=== PATIENT | male | born 1990 | race Caucasian/White ===

== ENCOUNTER → 2023-12-01 08:40 | Outpatient (REF) | payer BC, SELFPAY | LOC: PAVMRI 08:40 | PROVIDERS: ATTENDING PHYSICIAN Family Medicine | DX: G43.111 Migraine with aura, intractable, with status migrainosus (principal); H53.9 Unspecified visual disturbance; R42 Dizziness and giddiness | CPT/HCPCS: 70553; A9575 ==

== ENCOUNTER → 2024-07-04 08:13 | Outpatient (REF) | payer BC, SELFPAY | LOC: RCS 08:13 | PROVIDERS: ATTENDING PHYSICIAN Nurse Practitioner Family | DX: R00.2 Palpitations (principal); R03.0 Elevated blood-pressure reading, without diagnosis of hypertension | CPT/HCPCS: 93225; 93226 ==

== ENCOUNTER → 2024-07-16 16:48 | Outpatient (REF) | payer BC, SELFPAY | LOC: RCS 16:48 | PROVIDERS: ATTENDING PHYSICIAN Nurse Practitioner Family | DX: E00.2 Congenital iodine-deficiency syndrome, mixed type (principal); R03.0 Elevated blood-pressure reading, without diagnosis of hypertension | CPT/HCPCS: 93306 ==

== ENCOUNTER 2024-12-07 17:56 | Emergency (ER) | payer BC, SELFPAY ==
[2024-12-07 17:57] VITALS: BP 144/103
[2024-12-07 18:15] VITALS: BMI 25.9
--- NOTE | 2024-12-07 18:40 | ED.GENMED ---
History of Present Illness
General
Chief Complaint: Skin Surface Trauma
Source: patient and spouse
Exam Limitations: none
Time Seen by Provider: 12/07/24 18:10
Nursing documentation reviewed up to this point in time: agreed with
History of Present Illness
History of Present Illness:
34-year-old male presenting to the emergency department today with concerns of a laceration of his right sided chin that occurred from a small metal piece of kitchen where that bounced off the table hitting him in the chin causing his skin split
open. Also to his tooth but denies any movement of the tooth. Denies any trouble swallowing or breathing denies any additional injuries otherwise. No loss of consciousness. Not on thinners. He claims that the material was somewhat dirty.
Review of Systems
Review of Systems
Allergies reviewed?: Yes
All Other Systems: ROS reviewed and negative except as documented in HPI and ROS
Phy Exam
Physical Exam
Physical Exam:
GENERAL: Alert , in no apparent distress
EYE: pupils equal and reactive
NECK: Supple, no significant adenopathy.
ENT: o/p clr, mmm.
CARDIAC: Regular rate and rhythm .
LUNGS: Clear breath sounds bilaterally, no acute respiratory distress, no wheezes/rales/rhonchi
ABDOMEN: Soft, without focal tenderness, no r/g, no cvat
NEUROLOGICAL: Alert and oriented, no focal neuro deficits
SKIN: 1.5 cm laceration to the right sided anterior chin. Subcutaneous in depth no foreign body seen explored to its base. Warm and dry, skin intact.
MUSCULOSKELETAL: No edema, well perfused.
PSYCH: Normal and appropriate interaction.
Course
Orders/Labs/Results
Orders:
Orders
12/07/24 18:41
Cephalexin Monohydrate [Keflex] 500 mg PO NOW STA
Vital Signs
Initial and Last Documented VS:
Initial Vital Signs
Temp Pulse Resp BP Pulse Ox
97.9 F 110 16 144/103 99
12/07/24 17:57 12/07/24 17:57 12/07/24 17:57 12/07/24 17:57 12/07/24 17:57
Last Documented Vital Signs
Temp Pulse Resp BP Pulse Ox
97.9 F 110 16 144/103 99
12/07/24 17:57 12/07/24 17:57 12/07/24 17:57 12/07/24 17:57 12/07/24 17:57
Procedures
Laceration Closure
Right Chin:
Status of Wound: clean
Size of Wound in cm: 1.5
Description of Wound Edges: sharp
Preparation: cleaned with saline
Anesthesia: 1% Lidocaine with epi
Revision/Debridement: routine- no revision and irrigate-direct pressure
Wound exploration: explored to base- no FB
Type of Closure: single layer closure and interrupted sutures
Skin Closure Material: 6-0 prolene
Number of sutures: 3
MDM/Problems Addressed
MDM/Problems Addressed:
34-year-old male presenting to the emergency department with laceration to the right chin. Laceration is very clean in appearance has no risk for infection he was concerned that the material was somewhat dirty considering that he was started on
antibiotics for few days as prophylaxis. Otherwise area was cleaned thoroughly closed with 3 not dissolving stitches advised for removal in 7 days. Return precautions given.
*Critical Care Note
Total Time (30-74mins, 75-104mins- exclusive of procedures): Not Applicable
ED Attending Note
-
Portions of this chart may have been created with voice recognition software.� Occasional wrong word or��sound alike� substitutions may have occurred due to the inherent limitations of voice recognition software.
Discharge Plan
Departure
Patient Disposition: Home (Routine Discharge)
Date of Disposition: 12/07/24
Time of Disposition: 18:40
Patient with high blood pressure during this ER visit?: No
Condition: Good
Covid-19: Not Applicable
Discharge Problem:
Chin laceration
Instructions: Laceration Repair With Stitches (DC)
Prescriptions:
New
cephalexin 500 mg capsule
500 mg PO TID 3 Days Qty: 9 0RF
Activity Restrictions/Additional Instructions:
You came to the emergency department today with concerns of a laceration to your right keys region. This was cleaned thoroughly and closed with 3 stitches. Please take Keflex 3 times daily for the next 3 days to reduce risk of infection. Please
keep the area clean and use a small amount of ointment on the area. Please follow-up in 6 to 7 days for suture removal. Return for any worsening, new or concerning symptoms.
Interventions
Interventions:
*Risk Screen - Suicide Last Done: 12/07/24 18:15
*General Assessment Last Done: 12/07/24 18:15
*Neglect/Abuse Screening Last Done: 12/07/24 18:15
*ED- Fall Risk Assessment Last Done: 12/07/24 18:15
*ED COVID-19 Vaccine History Last Done: 12/07/24 18:15
*Nursing Disposition Last Done: 12/07/24 18:54
ED-Skin Assessment Last Done: 12/07/24 18:14
Discharge Date and Time
Discharge Date/Time: 12/07/24 18:55
Print Language: UKRAINIAN
[2024-12-07] MEDS: KEFLEX 500 MG PO (18:52)
== END 2024-12-07 18:55 | disposition home or self-care (01) ==
LOC: EMR 17:56
PROVIDERS: EMERGENCY PHYSICIAN Emergency Medicine; FAMILY PHYSICIAN Family Medicine
DX: S01.81XA Laceration without foreign body of other part of head, initial encounter (principal); W22.8XXA Striking against or struck by other objects, initial encounter
CPT/HCPCS: 12011; 99282